=== PATIENT | female | born 1995 | race Caucasian/White ===

== ENCOUNTER 2025-01-13 15:46 | Emergency (ER) | payer SELFPAY ==
[2025-01-13] MEDS ORDERED: LORazepam 2 MG/ML VIAL ONE (16:38)
[2025-01-13 16:43] LABS: Absolute Lymphocytes (CBC) 3.0 K/uL (0.7-4.9); Hematocrit 41.6 % (36.0-45.0); Hemoglobin 14.3 g/dL (12.0-15.0); MCH 30.0 pg (27.0-35.0); MCHC 34.3 g/dL (32.0-36.0); MCV 87.4 fL (80-100); MPV 8.8 fL (7.6-11.3); Nucleated RBC Absolute Count 0.0 (0-0); Nucleated Red Blood Cells % 0.2 % (0-0); RBC Red Blood Cell Count 4.76 M/uL (3.86-4.86); White Blood Count 9.50 thou/uL (4.3-10.9)
[2025-01-13 17:03] LABS: ALT/SGPT 37 U/L (13-56); AST/SGOT 17 U/L (15-37); Albumin 4.2 g/dL (3.4-5.0); Albumin/Globulin Ratio 1.1 (1.1-1.8); Alkaline Phosphatase 107 U/L (45-117); Anion Gap 8.0 mEq/L (5.0-15.0); BUN Blood Urea Nitrogen 9 mg/dL (7-18); Bilirubin Indirect, Calculated 0.8 mg/dL (0.2-0.8); Globulin 3.7 g/dL (2.3-3.5); Glucose Level 94 mg/dL (74-106); Magnesium 2.0 mg/dL (1.6-2.4); NT PRO-BNP 14 pg/mL (<125); Potassium 4.0 mEq/L (3.5-5.1)
[2025-01-13 17:05] LABS: Troponin High Sensitivity < 3.0 pg/mL (<58.9)
--- NOTE | 2025-01-13 17:44 | RAD REPORT ---
EXAM: Chest Single View HISTORY: 29 years Female CHEST PAIN COMPARISON: No prior exams FINDINGS: LUNGS/PLEURA: The lungs are clear. No pleural effusions or pneumothorax. No pulmonary edema. CARDIAC/MEDIASTINUM: The cardiac silhouette is within normal limits. UPPER ABDOMEN: No significant abnormality. BONES: No acute abnormality. LINES/TUBES/OTHER: N/A IMPRESSION: No evidence of acute cardiopulmonary disease.
--- NOTE | 2025-01-13 17:54 | EDPHYS ---
Physician Documentation [facility] Name: Jennie Florentino Age: 29 yrs Sex: Female : 1995 Arrival Date: 01/13/2025 Time: 15:46 Bed 17 Private MD: ED Physician Jj Trammell HPI: 01/13 17:59 This 29 yrs old Female presents to ER via Ambulatory with complaints of Chest Pain. kb 17:59 Pt is a 29 year old female who presents for chest pain that started around 1100 today. kb States she has to go up a lot of stairs at work and that is when the pain started. Reports associated shortness of breath. States she has bad anxiety but can normally control it on her own. Reports added stress recently due to starting a new job. States she has had this pain about once per week for the last month. . 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 - Infectious Disease History:: Denies. - Social history:: Smoking status: Patient denies any tobacco usage or history of. ROS: 17:53 Constitutional: As per HPI kb Exam: 17:53 Constitutional: This is a well developed, well nourished patient who is awake, alert, kb and in no acute distress. Head/Face: Normocephalic, atraumatic. ENT: Moist Mucous membranes Cardiovascular: Regular rate Respiratory: Respirations even and unlabored. No increased work of breathing. Talking in full sentences Abdomen/GI: Soft, non-tender. No distention Skin: Warm, dry with normal turgor. Normal color. MS/ Extremity: Pulses equal, no cyanosis. Neurovascular intact. Full, normal range of motion. Neuro: Awake and alert, GCS 15, oriented to person, place, time, and situation. 17:53 ECG was reviewed by the Attending Physician. Vital Signs: 15:57 BP 148 / 100; Pulse 88; Resp 16; Temp 98.1; Pulse Ox 100% on R/A; Pain 8/10; dd2 17:21 BP 123 / 83; Pulse 88; Resp 20; Pulse Ox 100% on R/A; kj2 18:14 BP 122 / 82; Pulse 84; Resp 18; Temp 98; Pulse Ox 100% ; kj2 15:57 Pain Scale: Adult dd2 MDM: 15:50 Medical Screening Exam initiated kb 17:57 Differential diagnosis: CAD, TX, arrhythmia, PE, anxiety. Data reviewed: vital signs, kb nurses notes. Independent interpretation of the following test(s) in the Emergency Department X-Ray: My interpretation is no pneumothorax. Test considered but Not performed: CT: CT chest considered but PERC negative. Scoring Tools PERC Rule for PE Age >/= 50 No HR >/= 100 No O2 Sat Room Air < 95% No Unilateral leg swelling No Hemoptysis No Recent surgery or trauma </= 4 wks ago requiring treatment with general anesthesia No (0 pt) Prior PE or DVT No Hormone use (Oral contraceptives, hormone replacement or estrogenic hormones use in males or female patients No. Counseling: I had a detailed discussion with the patient and/or guardian regarding the historical points, exam findings, and any diagnostic results supporting the discharge/admit diagnosis, lab results, radiology results, the need for outpatient follow up, a family practitioner, to return to the emergency department if symptoms worsen or persist or if there are any questions or concerns that arise at home. Response to treatment: the patient's symptoms have resolved after treatment. 01/13 16:00 Order name: Basic Metabolic Panel; Complete Time: 17:05 01/13 16:00 Order name: CBC with Diff; Complete Time: 16:47 01/13 16:00 Order name: LFT's; Complete Time: 17:05 01/13 16:00 Order name: Magnesium; Complete Time: 17:05 01/13 16:00 Order name: NT PRO-BNP; Complete Time: 17:05 01/13 16:00 Order name: Troponin HS; Complete Time: 17:05 01/13 16:00 Order name: XRAY Chest (1 view); Complete Time: 17:49 01/13 16:00 Order name: Cardiac monitoring 01/13 16:00 Order name: EKG - Nurse/Tech 01/13 16:00 Order name: IV Saline Lock 01/13 16:00 Order name: Labs collected and sent 01/13 16:00 Order name: O2 Per Protocol 01/13 16:00 Order name: O2 Sat Monitoring 01/13 17:04 Order name: Vital Signs kb EC:53 Rate is 86 beats/min. Rhythm is regular. QRS [place] is Normal. [place] interval is normal at kb 162 msec. QRS interval is normal at 82 msec. QT interval is normal at 457 msec. Administered Medications: 16:51 Drug: Ativan IVP 1 mg IVP once Route: IVP; Site: right antecubital; kj2 Disposition: 18:46 I was immediately available on-site in the Emergency Department for consultation in the ms3 care of the patient. Disposition Summary: 01/13/25 17:53 Discharge Ordered Notes: Location: Home kb Condition: Stable kb Diagnosis - Chest pain, unspecified kb Followup: kb - With: Emergency Department - When: As needed - Reason: Worsening of condition Followup: kb - With: Private Physician - When: 2 - 3 days - Reason: Recheck today's complaints, Continuance of care, Re-evaluation by your physician Discharge Instructions: - Discharge Summary Sheet kb - Nonspecific Chest Pain, Adult, [id number] kb Forms: - Medication Reconciliation Form kb - Antibiotic Education kb - Prescription Opioid Use kb - Patient Portal Instructions kb - Leadership Thank You Letter kb Signatures: Dispatcher [employer] EDMS Oxana Balderrama, CANDY SPREADER-C CANDY SPREADER-Jj Rosales DO DO ms3 Annamaria Garcia, RN RN kj2 CAROLINA FRY RN RN dd2 Corrections: (The following items were deleted from the chart) 16:01 16:01 BASIC METABOLIC PANEL+C.LAB.BRZ ordered. EDMS EDMS 16:01 16:01 CBC+H.LAB.BRZ ordered. EDMS EDMS 16:01 16:01 HEPATIC FUNCTION+C.LAB.BRZ ordered. EDMS EDMS 16:01 16:01 MAGNESIUM+C.LAB.BRZ ordered. EDMS EDMS 16:01 16:01 PROBNP+C.LAB.BRZ ordered. EDMS EDMS 16:01 16:01 Troponin High Sensitivity+C.LAB.BRZ ordered. EDMS EDMS 16:01 16:01 Chest Single View+RAD.RAD.BRZ ordered. EDWV EDMS 18:02 17:59 Pt is a 29 year old female who presents for chest pain . kb kb
--- NOTE | 2025-01-13 17:54 | ER ---
Nurse's Notes [facility] Name: Jennie Florentino Age: 29 yrs Sex: Female : 1995 Arrival Date: 01/13/2025 Time: 15:46 Bed 17 Private MD: Diagnosis: Chest pain, unspecified Presentation: 01/13 15:57 Chief complaint: Patient states: WAS WALKING UP STAIRS AND BEGAN HAVING CHEST PAIN, dd2 SHORTNESS OF BREATH AND FACIAL TWITCHING AROUND 1130 AM. PT STATES THIS HAS OCCURRED ONCE A WEEK FOR ABOUT A MONTH. Coronavirus screen: At this time, the client does not indicate any symptoms associated with coronavirus-19. Ebola Screen: No symptoms or risks identified at this time. Initial Sepsis Screen: Does the patient meet any 2 criteria? No. Patient's initial sepsis screen is negative. Does the patient have a suspected source of infection? No. Patient's initial sepsis screen is negative. Risk Assessment: Do you want to hurt yourself or someone else? Patient reports no desire to harm self or others. Onset of symptoms was January 13, 2025 at 11:30. 15:57 Method Of Arrival: Ambulatory dd2 15:57 Acuity: GARRETT 3 dd2 Triage Assessment: 15:59 General: Appears in no apparent distress. uncomfortable, Behavior is calm, cooperative, dd2 appropriate for age. Pain: Complains of pain in anterior aspect of right upper chest and mid-sternal area Pain currently is 8 out of 10 on a pain scale. Cardiovascular: Reports chest pain, shortness of breath. 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 - Infectious Disease History:: Denies. - Social history:: Smoking status: Patient denies any tobacco usage or history of. Screenin:45 [facility] ED Fall Risk Assessment (Adult) History of falling in the last 3 months, kj2 including since admission No falls in past 3 months (0 pts) Confusion or Disorientation No (0 pts) Intoxicated or Sedated No (0 pts) Impaired Gait No (0 pts) Mobility Assist Device Used No (0 pt) Altered Elimination No (0 pt) Score/Fall Risk Level 0 - 2 = Low Risk Maintained a safe environment, Hourly rounding (assess needs \T\ fall precautionary measures) done. Abuse screen: Denies threats or abuse. Denies injuries from another. Nutritional screening: No deficits noted. Tuberculosis screening: No symptoms or risk factors identified. Assessment: 16:45 General: Appears in no apparent distress. Behavior is calm, cooperative. Pain: kj2 Complains of pain in chest and mid-sternal area Pain does not radiate. Pain began suddenly. 17:21 Reassessment: Patient appears in no apparent distress at this time. Patient and/or kj2 family updated on plan of care and expected duration. Pain level reassessed. Patient is alert, oriented x 3, equal unlabored respirations, skin warm/dry/pink. 18:14 Reassessment: Patient appears in no apparent distress at this time. Patient and/or kj2 family updated on plan of care and expected duration. Pain level reassessed. Patient is alert, oriented x 3, equal unlabored respirations, skin warm/dry/pink. Vital Signs: 15:57 BP 148 / 100; Pulse 88; Resp 16; Temp 98.1; Pulse Ox 100% on R/A; Pain 8/10; dd2 17:21 BP 123 / 83; Pulse 88; Resp 20; Pulse Ox 100% on R/A; kj2 18:14 BP 122 / 82; Pulse 84; Resp 18; Temp 98; Pulse Ox 100% ; kj2 15:57 Pain Scale: Adult dd2 ED Course: 15:50 Patient arrived in ED. cj3 15:50 Oxana Balderrama [facility]-C [facility]. kb 15:50 Jj Trammell DO is Attending Physician. kb 15:59 Triage completed. dd2 15:59 Arm band placed on right wrist. dd2 16:26 Annamaria Garcia, RN is Primary Nurse. kj2 16:45 Patient has correct armband on for positive identification. Bed in low position. Call kj2 light in reach. Provided Education on: call light. Client placed on continuous cardiac and pulse oximetry monitoring. NIBP monitoring applied. machine repairer maintenance on. Pulse ox on. 16:51 Inserted saline lock: 20 gauge in right antecubital area, using aseptic technique. kj2 Blood collected. Flushed with 10 mL NS. 17:40 XRAY Chest (1 view) In Process Unspecified. EDMS 18:15 No provider procedures requiring assistance completed. IV discontinued, intact, kj2 bleeding controlled, No redness/swelling at site. Pressure dressing applied. Patient maintains SpO2 saturation greater than 95% on room air. Administered Medications: 16:51 Drug: Ativan IVP 1 mg IVP once Route: IVP; Site: right antecubital; kj2 Medication: 18:15 VIS not applicable for this client. kj2 Outcome: 17:53 Discharge ordered by . dionte 18:15 Discharged to home ambulatory, kj2 18:15 Condition: stable 18:15 Discharge instructions given to patient, Instructed on discharge instructions, follow up and referral plans. Demonstrated understanding of instructions, follow-up care, 18:19 Patient left the ED. kj2 Signatures: Dispatcher [employer] EDMS Oxana Balderrama, Annamaria Dangelo RN RN kj2 CAROLINA FRY RN RN dd2 Rajni Murdock cj3
[2025-01-13 19:04] VITALS: O2SAT 100
[2025-01-13 19:07] VITALS: BP 122/82; TEMP 98
== END 2025-01-13 18:19 | disposition home or self-care (01) ==
LOC: ER 15:46
DX: R07.9 Chest pain, unspecified (principal); F41.9 Anxiety disorder, unspecified
CPT/HCPCS: 36415; 71045; 80048; 80076; 83735; 83880; 84484; 85025; 93005; 96374; 99285